=== PATIENT | male | born 2000 ===

== ENCOUNTER 2024-06-29 18:30 | Emergency (ER) | payer SELFPAY ==
[2024-06-29 18:36] VITALS: BP 121/71; PULSE 91; RESP 16; TEMP 37.3; O2SAT 97; BMI 24.7
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
== END 2024-06-29 19:18 ==
LOC: SERX 20:16
PROVIDERS: Emergency Provider Emergency Medicine
DX: Z02.89 Encounter for other administrative examinations (principal); Z04.1 Encounter for examination and observation following transport accident
CPT/HCPCS: 99283